=== PATIENT | male | born 1990 | race Caucasian/White ===

== ENCOUNTER 2018-03-13 11:14 | Emergency (ER) | payer BC ==
[~2018-03-13] VITALS: Ht 175.3 cm; Wt 72.6 kg
[2018-03-13] MEDS ORDERED: SERT25TA PO (11:23)
[2018-03-13] MEDS ORDERED: GABA800T3 PO (11:23)
[2018-03-13] MEDS ORDERED: BUPR150T5 PO (11:23)
[2018-03-13] MEDS ORDERED: MECLIZINE HCL 25 MG TABLET PO ONE (11:45)
[2018-03-13] MEDS ORDERED: MECLIZINE HCL 25 MG TABLET ONE (11:49)
--- NOTE | 2018-03-13 12:12 | NUR ---
Patient is AOx4, refusing blood draw, MD notified.
--- NOTE | 2018-03-13 12:49 | NUR ---
Patient discharged to home in stable conditon & brisk steady gait. Written and verbal after care instructions given to patient. Patient verbalizes understanding of instructions. Decreased dizziness was expressed by patient.
== END 2018-03-13 12:49 | disposition home or self-care (01) ==
LOC: ER 11:14
DX: R42 Dizziness and giddiness (principal); M79.10 Myalgia, unspecified site; J45.909 Unspecified asthma, uncomplicated; F17.200 Nicotine dependence, unspecified, uncomplicated
CPT/HCPCS: 93005; J8597

== ENCOUNTER 2018-07-20 08:33 | Emergency (ER) | payer BC ==
[~2018-07-20 08:33] MED LIST: BUPR150T5 PO; GABA800T11 PO; SERT25TA PO
--- NOTE | 2018-07-20 08:39 | NUR ---
Attempted to traige pt. Pt was not found in ER waiting room. Per security pt was seen leaving the ER and walking down the sidewalk.
== END 2018-07-20 08:46 | disposition left against medical advice (07) ==
LOC: ER 08:34
DX: Z53.21 Procedure and treatment not carried out due to patient leaving prior to being seen by health care provider (principal)